=== PATIENT | female | born 1985 ===

== ENCOUNTER 2022-06-24 05:25 | Day surgery (SDC) | payer OTHER | END 2022-06-24 15:30 | disposition home or self-care (01) | LOC: CIR.AMB 05:25 | PROVIDERS: ATTEND Obstetrics & Gynecology | DX: N93.9 Abnormal uterine and vaginal bleeding, unspecified (principal); Z91.040 Latex allergy status; Z20.822 Contact with and (suspected) exposure to COVID-19 ==